=== PATIENT | male | born 2000 | race African-American/Black ===

== ENCOUNTER 2024-03-24 20:28 | Emergency (ER) | payer MEDICAID ==
[~2024-03-24] VITALS: Ht 193 cm; Wt 74.0 kg
[2024-03-24 20:36] VITALS: O2SAT 100
[2024-03-24] MEDS ORDERED: IBUP-2029 MT (21:57)
[2024-03-24 22:02] VITALS: BP 117/55; PULSE 60; RESP 16; TEMP 98
== END 2024-03-24 22:07 | disposition home or self-care (01) ==
LOC: ER 20:28
DX: S20.212A Contusion of left front wall of thorax, initial encounter (principal); X58.XXXA Exposure to other specified factors, initial encounter; Y93.89 Activity, other specified; Y92.89 Other specified places as the place of occurrence of the external cause; Y99.8 Other external cause status
CPT/HCPCS: 71101; 99283